=== PATIENT | male | born 1980 | race Two or more races ===

== ENCOUNTER 2024-12-19 17:03 | Emergency (ER) | payer MEDICAID ==
[~2024-12-19] VITALS: Ht 175.3 cm; Wt 75.0 kg
[2024-12-19 17:06] VITALS: TEMP 36.9; O2SAT 99
[2024-12-19 18:07] LABS: BASOPHILS % 0.5 % (0.0-2.0); DIFFERENTIAL COMMENT 0; EOSINOPHILS % 1.1 % (0.0-5.0); HEMATOCRIT. 41.1 % (42.0-52.0); HEMOGLOBIN. 14.2 g/dL (14.0-18.0); LYMPHOCYTES % 9.6 % (20.0-50.0); MEAN CORPUSCULAR HEMOGLOBIN 35.6 pg (28.0-32.0); MEAN CORPUSCULAR HGB CONC 34.5 g/dL (31.0-37.0); MEAN PLATELET VOLUME 7.4 fl (7.4-10.4); MONOCYTES % 13.5 % (2.0-8.0); NEUTROPHILS % 75.3 % (40.0-76.0); PLATELET 216 x1000/uL (130-400); RED BLOOD CELL COUNT 3.99 mill/uL (4.7-6.1); RED CELL DISTRIBUTION WIDTH 12.7 % (11.6-14.6); WHITE BLOOD COUNT 6.9 x1000/uL (4.5-11.0)
[2024-12-19 18:17] LABS: CHLORIDE 88 mEq/L (98-107); POTASSIUM 3.8 mEq/L (3.5-5.1); SODIUM 132 mEq/L (136-145)
[2024-12-19 18:18] LABS: CALCIUM 10.3 mg/dL (8.7-10.4); CARBON DIOXIDE 21 mEq/L (21-32)
[2024-12-19 18:23] LABS: CREATININE 1.4 mg/dL (0.6-1.3); GLUCOSE 99 mg/dL (70-105); UREA NITROGEN BLOOD 22 mg/dL (9-23)
[2024-12-19 18:25] LABS: ALANINE AMINOTRANSFERASE 148 IU/L (10-49); ASPARTATE AMINOTRANSFERASE 141 IU/L (<34); BILIRUBIN TOTAL 2.4 mg/dL (0.1-1.0); PROTEIN TOTAL 8.6 g/dL (6.0-8.3)
[2024-12-19 20:18] LABS: ETHANOL BLOOD < 10 mg/dL (<10)
[2024-12-19] MEDS: MAGNESIUM/ALUMINUM HYDROXIDE/SIMETHICONE 30ML UDC PO ONE (21:37)
[2024-12-19] MEDS: ONDANSETRON 4MG ODT PO ONE (21:37)
[2024-12-19] MEDS: ACETAMINOPHEN 500MG TABLET PO ONE (21:37)
[2024-12-19] MEDS: FAMOTIDINE 20MG TABLET PO ONE (21:37)
[2024-12-19] MEDS ORDERED: ONDA4TAB50 MT (21:58)
[2024-12-19] MEDS ORDERED: MAG-55 MT (21:58)
[2024-12-19 22:13] VITALS: BP 126/81; PULSE 116; RESP 16; O2SAT 100
== END 2024-12-19 22:16 | disposition home or self-care (01) ==
LOC: ER 17:03
DX: K29.70 Gastritis, unspecified, without bleeding (principal); I10 Essential (primary) hypertension; E87.6 Hypokalemia; F31.9 Bipolar disorder, unspecified; Z79.899 Other long term (current) drug therapy
CPT/HCPCS: 80053; 80320; 83690; 85025; 36415; 74176; 76705; 99284; Q0162; G0480